=== PATIENT | male | born 2000 | race Two or more races ===

== ENCOUNTER 2018-04-11 11:13 | Emergency (ER) | payer MEDICAID ==
[~2018-04-11] VITALS: Ht 165.1 cm; Wt 63.5 kg
[2018-04-11 11:20] VITALS: BP 114/67; Ht 165.1 cm; Wt 63.5 kg
== END 2018-04-11 12:11 | disposition home or self-care (01) ==
LOC: ED 11:13
DX: M25.572 Pain in left ankle and joints of left foot (principal); X50.1XXA Overexertion from prolonged static or awkward postures, initial encounter; Y93.66 Activity, soccer; Y92.89 Other specified places as the place of occurrence of the external cause; Y99.8 Other external cause status
CPT/HCPCS: Q0092